=== PATIENT | male | born 1940 | race Caucasian/White ===

== ENCOUNTER 2021-04-27 11:50 | Emergency (ER) | payer MEDICARE, MEDICAID ==
[~2021-04-27] VITALS: Ht 177.8 cm; Wt 85.0 kg
[2021-04-27 12:42] LABS: HEMATOCRIT. 21.4 % (42.0-52.0); HEMOGLOBIN. 7.5 g/dL (14.0-18.0); MEAN CORPUSCULAR HEMOGLOBIN 28.2 pg (28.0-32.0); MEAN CORPUSCULAR VOLUME 80.3 fL (80.0-94.0); MEAN PLATELET VOLUME 9.5 fl (7.4-10.4); RED BLOOD CELL COUNT 2.66 mill/uL (4.7-6.1); RED CELL DISTRIBUTION WIDTH 16.8 % (11.6-14.6)
[2021-04-27 12:48] LABS: CHLORIDE 107 mEq/L (98-107)
[2021-04-27 12:52] LABS: INR 1.4; PROTHROMBIN TIME 14.3 sec (9.6-11.0)
[2021-04-27 12:53] LABS: ETHANOL BLOOD < 10 mg/dL
[2021-04-27 12:58] LABS: CREATINE KINASE 151 IU/L (39-308)
[2021-04-27 12:59] LABS: PLATELET 18 x1000/uL (130-400)
[2021-04-27 13:22] LABS: NUCLEATED RED BLOOD CELLS 11 /100 WBC; PLATELET ESTIMATE MARKEDLY DECREASED
[2021-04-27] MEDS ORDERED: FENTANYL CITRATE/PF 50MCG/ML 2ML VIAL IV ONE (13:30)
[2021-04-27] MEDS ORDERED: IOHEXOL-300 100 ML BOTTLE ONE ×2 (14:50→15:49)
[2021-04-27] MEDS ORDERED: SODIUM CHLORIDE 0.9% 1,000 ML IV ONE (15:30)
[2021-04-27 17:29] VITALS: BP 90/45
== END 2021-04-27 17:50 | disposition short-term general hospital (02) ==
LOC: ER 12:46 → ENRESERV 14:36 → CANRESERV 14:36 → CANBEDREQ 17:36 → ER 17:50
DX: S22.42XA Multiple fractures of ribs, left side, initial encounter for closed fracture (principal); I21.A1 Myocardial infarction type 2; S42.001A Fracture of unspecified part of right clavicle, initial encounter for closed fracture; S42.115A Nondisplaced fracture of body of scapula, left shoulder, initial encounter for closed fracture; S42.135A Nondisplaced fracture of coracoid process, left shoulder, initial encounter for closed fracture; S00.83XA Contusion of other part of head, initial encounter; E11.22 Type 2 diabetes mellitus with diabetic chronic kidney disease; I12.9 Hypertensive chronic kidney disease with stage 1 through stage 4 chronic kidney disease, or unspecified chronic kidney disease; N18.9 Chronic kidney disease, unspecified; D69.6 Thrombocytopenia, unspecified; D73.9 Disease of spleen, unspecified; Z85.46 Personal history of malignant neoplasm of prostate; V43.52XA Car driver injured in collision with other type car in traffic accident, initial encounter; Y93.89 Activity, other specified; Y92.488 Other paved roadways as the place of occurrence of the external cause
CPT/HCPCS: 36415; 70450; 71045; 71260; 72125; 74177; 80053; 80320; 82550; 83605; 83690; 83880; 84484; 85025; 85610; 86850; 86900; 86901; 86920; 93005; 96361; 96374; 99285; J3010; J7030; Q9967; G0480